=== PATIENT | female | born 1985 | race Asian ===

== ENCOUNTER 2024-07-20 16:35 | Emergency (ER) | payer MEDICAID ==
[~2024-07-20] VITALS: Ht 160 cm; Wt 71.0 kg
[2024-07-20 16:56] VITALS: TEMP 98.3
[2024-07-20] MEDS ORDERED: PRED-554 PO (19:26)
[2024-07-20] MEDS ORDERED: DIPH-1243 PO (19:26)
[2024-07-20] MEDS: PredniSONE 20 MG TABLET PO ONE (20:00)
[2024-07-20 20:03] VITALS: BP 125/85; PULSE 76; RESP 18; O2SAT 100
== END 2024-07-20 20:11 | disposition home or self-care (01) ==
LOC: EMS 16:35
DX: L50.9 Urticaria, unspecified (principal); L08.0 Pyoderma; E78.00 Pure hypercholesterolemia, unspecified
CPT/HCPCS: 99283; J7512